=== PATIENT | male | born 1965 | race Caucasian/White ===

== ENCOUNTER 2020-06-22 10:13 | Outpatient (REF) | payer OTHER, SELFPAY ==
--- NOTE | ~2020-06-22 | XR_ITS ---
EXAMINATION: XR SHOULDER, LEFT CLINICAL INFORMATION: Pain COMPARISON: None TECHNIQUE: AP external rotation, Grashey, scapular Y, and axillary views of the left shoulder. FINDINGS: The bones and soft tissues are normal. No fracture. Glenohumeral and acromioclavicular alignment is anatomic with normal joint space. No abnormal soft tissue calcifications. XR/XR shoulder LT min 2V IMPRESSION: Normal left shoulder.
== END 2020-06-22 10:14 | disposition home or self-care (01) ==
LOC: HO.HMGCX 10:13
PROVIDERS: PCP Nurse Practitioner Family; Visit Provider Nurse Practitioner Family
DX: M25.512 Pain in left shoulder (principal)
CPT/HCPCS: 73030

== ENCOUNTER 2020-09-12 07:00 | Outpatient (RCR) | payer OTHER, SELFPAY ==
--- NOTE | 2020-06-29 13:31 | MHC.PT.EP ---
[facility] [place] Office [place] Office [place] Office [address] [phone] F: [phone] F: [phone] F: [phone] F: [phone] Physical Therapy Plan of Care Date of Evaluation: 06/29/20 Date of Surgery: n/a Diagnosis: L shoulder pain Assessment: Patient is a 55 year old L handed male who presents with s/s consistent with L shoulder pain. He works with daily job demands including janitorial work. He would also love to be back to playing softball unrestricted this summer. Patient past medical history is non-contributory. Current impairments include pain, ROM, posture, strength, safety, independence, activity tolerance and functional mobility. Functional limitations include decreased ability to reach overhead, lift, throw, swing, and perform weight bearing activities.. Patient is motivated with good rehab potential. Skilled PT will address impairments and functional limitations in order to achieve goals. Frequency and Duration: The patient will be seen 2x/week for 5 weeks Short Term Goals: I with HEP - 2 weeks Full pain free AROM - 3 weeks (-) impingement sign - 3 weeks Stick Inserter Goals: Strength 4/5 grossly - 5 weeks SPADI 50/130 or better - 5 weeks Able to resume softball - 5 weeks Treatment Plan: Modalities to reduce pain, spasms and effusion. Manual therapy to restore motion and function. Therapeutic exercise to improve strength and flexibility. Neuromuscular re-education for posture and balance. Therapeutic activities to return to functional activities of daily living. Electronically signed by: Reymundo Perea, PT Please sign and return to therapist. Thank you for your referral.
--- NOTE | 2020-09-12 10:56 | MHC.PT.DC ---
[facility] [place] Office [place] Office [place] Office [address] [phone] F: [phone] F: [phone] F: [phone] F: [phone] Physical Therapy Discharge Report Diagnosis: L shoulder pain Date of Surgery: n/a Date of Evaluation: 06/29/20 Date of Discharge: 09/12/20 Treatments to Date: 15 Cancellations to Date: 0 No Shows to Date: 0 Discharge Status: Achieved Goals Improved Function Independent with HEP Discharge Summary: Pt SHWETA OVERALL PROGRESS W LEFT SH ROM, STRENGTH, AND PAIN. HE IS INDEP W SELF- SX MGMT TECHN AND IS MORE COMPLIANT W HEP - HE SHWETA SIGNIF IMPROVEMENTS IN HIS SPADI SCORE (AT EVAL 113/130 AND TODAY AT D/C 48/130). HE HAS A THOROUGH HEP ADDRESSING STRETCHING/ STRENGTHENING/ FUNCT MOB. Electronically signed by: Laura Song, PT Please sign and return to therapist. Thank you for your referral.
== END 2020-09-12 10:57 | disposition other institution (70) ==
LOC: HO.PTCHIC 07:00
PROVIDERS: PCP Nurse Practitioner Family; Visit Provider Nurse Practitioner Family
DX: M25.512 Pain in left shoulder (principal)
CPT/HCPCS: 97110; 97140; 97161

== ENCOUNTER 2020-12-20 06:02 | Outpatient (REF) | payer OTHER, SELFPAY ==
[2020-12-20 12:15] LABS: Alanine Aminotransferase 29 U/L (0-40); Albumin Level 4.2 g/dL (3.5-5.0); Alkaline Phosphatase 120 U/L (39-117); Anion Gap 12 (12-20); Aspartate Amino Transferase 18 U/L (5-37); Bilirubin Total 0.4 mg/dL (0.0-1.0); Blood Urea Nitrogen 11 mg/dL (9-16); Calcium 9.3 mg/dL (8.4-10.2); Carbon Dioxide 28 mmol/L (22-29); Chloride 106 mmol/L (96-108); Cholesterol 223 mg/dL; Estimated Glomerular Filt Rate > 60; Glucose Fasting 101 mg/dL (60-99); HDL Cholesterol 38 mg/dL; LDL Cholesterol Calculated 106 mg/dl; Potassium 4.2 mmol/L (3.3-5.1); Sodium 142 mmol/L (135-145); Total Protein 7.2 g/dL (6.5-8.0); Triglycerides 395 mg/dL
[2020-12-20 12:38] LABS: TSH reflex Free T4 2.77 uIU/mL (0.32-4.0)
== END 2020-12-20 06:03 | disposition home or self-care (01) ==
LOC: HO.HMGCLDS 06:02
PROVIDERS: PCP Nurse Practitioner Family; Visit Provider Nurse Practitioner Family
DX: Z00.00 Encounter for general adult medical examination without abnormal findings (principal); Z12.5 Encounter for screening for malignant neoplasm of prostate
CPT/HCPCS: 36415; 80053; 80061; 84153; 84443

== ENCOUNTER 2021-06-28 07:00 | Outpatient (RCR) | payer OTHER, SELFPAY ==
--- NOTE | 2021-01-16 09:08 | MHC.PT.EP ---
[facility] [place] Office [place] Office [place] Office [address] [phone] F: [phone] F: [phone] F: [phone] F: [phone] Physical Therapy Plan of Care Date of Evaluation: Date of Surgery: none Diagnosis: L shoulder pain Assessment: Patient is a 55 year old R handed male who presents with s/s consistent with L shoulder pain. He is very motivated to improve his ability to throw a softball for next s season. He also wants to improve his daily functional mobility. He works with daily job demands including janitorial duties. Patient past medical history includes is likely non-contributory. Current impairments include pain, ROM, posture, strength, activity tolerance and functional mobility. Functional limitations include decreased ability to reach, lift, carry, push, pull, throw, dress, sleep, and perform weight bearing activities.. Patient is motivated with good rehab potential. Skilled PT will address impairments and functional limitations in order to achieve goals. Frequency and Duration: The patient will be seen 1x/week for 8 weeks Short Term Goals: I with HEP - 2 weeks Full flexion and abduction - 4 weeks Initiate cuff strength with no setbacks - 4 weeks Senior Living Goals: Able to throw overhead with sustainable mechanics - 8 weeks Max pain with daily activities 2/10 or better - 8 weeks ER at 45/60/90 - 60 or better - 8 weeks Treatment Plan: Modalities to reduce pain, spasms and effusion. Manual therapy to restore motion and function. Therapeutic exercise to improve strength and flexibility. Neuromuscular re-education for posture and balance. Therapeutic activities to return to functional activities of daily living. Electronically signed by: Reymundo Perea, PT Please sign and return to therapist. Thank you for your referral.
--- NOTE | 2021-08-31 13:43 | MHC.PT.DC ---
[facility] [place] Office [place] Office [place] Office [address] [phone] F: [phone] F: [phone] F: [phone] F: [phone] Physical Therapy Discharge Report Diagnosis: L shoulder pain Date of Surgery: none Date of Evaluation: 01/16/21 Date of Discharge: 07/02/21 Treatments to Date: 18 Cancellations to Date: 0 No Shows to Date: Discharge Status: Independent with HEP Discharge Summary: Pt was unable to attend after his last appt but does have a sufficient HEP that we revised over the course of his bout of PT. He has improved on his impairments and functional limitations, though still lacking optimal ROM and strength. Able to toss softball x30 throws 20 feet. We will attempt to progress on this NV. No adverse reactions. Instructed in throwing 3-4x/week outside PT Electronically signed by: Reymundo Perea PT Please sign and return to therapist. Thank you for your referral.
== END 2021-08-31 13:44 | disposition home or self-care (01) ==
LOC: HO.PTCHIC 07:00
PROVIDERS: PCP Nurse Practitioner Family; Visit Provider Nurse Practitioner Family
DX: M25.512 Pain in left shoulder (principal)
CPT/HCPCS: 97110; 97140; 97161; 97530

== ENCOUNTER 2022-09-07 15:30 | Outpatient (REF) | payer OTHER, SELFPAY ==
[2022-09-07 16:18] LABS: MANUAL DIFF FLAG NO
[2022-09-07 17:45] LABS: Basophils Absolute Auto 0.1 X10*3/uL (0.0-0.2); Basophils Percent Auto 0.7 % (0-2); Eosinophils Absolute Auto 0.4 X10*3/uL (0.0-0.4); Eosinophils Percent Auto 4.8 % (0-4); Hematocrit 41.6 % (42.0-52.0); Hemoglobin 13.5 g/dl (14.0-18.0); Imm Gran Abs Auto 0.03 X10*3/uL (0.00-0.03); Imm Gran Pct Auto 0.4 % (0.0-0.4); Lymphocytes Absolute Auto 2.7 X10*3/uL (1.2-4.9); Lymphocytes Percent Auto 32.8 % (20-40); Mean Corpuscular HGB Conc 32.5 g/dl (31.0-36.0); Mean Corpuscular Hemoglobin 27.5 pg (27.0-33.0); Mean Corpuscular Volume 84.7 fL (80.0-98.0); Mean Platelet Volume 10.3 fL (9.4-12.4); Monocytes Absolute Auto 0.6 X10*3/uL (0.1-1.2); Monocytes Percent Auto 7.6 % (2-11); Neutrophils Absolute Auto 4.5 x10*3/uL (2.0-8.3); Neutrophils Percent Auto 53.7 % (45-73); Platelet Count 305 X10*3/uL (160-400); Red Blood Count 4.91 X10*6/uL (4.60-5.80); Red Cell Distribution Width 13.5 % (11.0-16.0); White Blood Count 8.3 X10*3/uL (4.8-10.8)
[2022-09-07 17:56] LABS: Appearance Urine Clear; Color Urine Yellow; Glucose Urine UA Negative (Negative); Leukocyte Esterase Urine Negative (Negative); Nitrite Urine Negative (Negative); PH 7.5 (5.0-9.0); Specific Gravity - Urine 1.015 (1.005-1.025); Urine Blood Negative (Negative); Urine Ketones Negative (Negative); Urine Protein Negative (Neg-Trace)
[2022-09-07 18:55] LABS: Ferritin 9 ng/mL (20-250)
[2022-09-07 19:11] LABS: Prostate Specific Antigen Scr 0.24 ng/mL (<0.05-4.0); Vitamin B12 294 pg/mL (200-900)
[2022-09-07 19:58] LABS: Alanine Aminotransferase 21 U/L (0-40); Alkaline Phosphatase 116 U/L (39-117); Anion Gap 12 (12-20); Aspartate Amino Transferase 15 U/L (5-37); Bilirubin Total 0.4 mg/dL (0.0-1.0); Blood Urea Nitrogen 14 mg/dL (9-16); Calcium 9.3 mg/dL (8.4-10.2); Carbon Dioxide 25 mmol/L (22-29); Chloride 107 mmol/L (96-108); Cholesterol 197 mg/dL; Estimated Glomerular Filt Rate > 60; Glucose Fasting 85 mg/dL (60-99); HDL Cholesterol 33 mg/dL; LDL Cholesterol Calculated 88 mg/dl; Potassium 4.2 mmol/L (3.3-5.1); Sodium 140 mmol/L (135-145); Total Protein 7.4 g/dL (6.5-8.0); Triglycerides 382 mg/dL
[2022-09-07 20:06] LABS: TSH reflex Free T4 1.54 uIU/mL (0.32-4.0)
== END 2022-09-07 15:31 | disposition home or self-care (01) ==
LOC: HO.LAB 15:30
PROVIDERS: PCP Nurse Practitioner Family; Visit Provider Internal Medicine
DX: Z00.00 Encounter for general adult medical examination without abnormal findings (principal); Z12.5 Encounter for screening for malignant neoplasm of prostate; K62.5 Hemorrhage of anus and rectum; D51.0 Vitamin B12 deficiency anemia due to intrinsic factor deficiency; Z80.0 Family history of malignant neoplasm of digestive organs; Z86.010 Personal history of colon polyps
CPT/HCPCS: 36415; 80053; 80061; 81003; 82607; 82728; 82746; 84153; 84443; 85025; 85027

== ENCOUNTER 2022-11-22 09:50 | Day surgery (SDC) | payer OTHER, SELFPAY ==
[2022-11-20 12:14] VITALS: BMI 37.5
--- NOTE | 2022-11-21 09:29 | P.CONAN_ITS ---
Documented by User: Mia Jones NP 11/21/22 09:30 HPI - Anesthesia Eval Consult details Narrative: 57yo M for Upper Endoscopy and Colonoscopy [facility] Active Problems Active Problems: All Active Problems (Updated 11/20/22 @ 12:10 by Malaika Simons, FE) Left shoulder pain (Acute) Physical exam (Acute) Screening PSA (prostate specific antigen) (Acute) Dyslipidemia (Acute) Erectile dysfunction (Acute) Screening for colon cancer (Acute) Bright red rectal bleeding (Acute) Family history of colon cancer (Acute) Personal history of colonic polyps (Acute) Iron deficiency anemia (Acute) Low vitamin B12 level (Acute) Sleep apnea (Acute) Past Medical History Medical History Hematochezia Pernicious anemia Family history of diabetes mellitus Sleep apnea Low vitamin B12 level Family History Family History Father No problems noted. Mother Hypertension Daughter Colon cancer Surgical History Surgical History Hx of umbilical hernia repair History of esophagogastroduodenoscopy (EGD) Hx of colonoscopy H/O inguinal hernia repair Social History Social History Housing: Apartment Alcohol intake: never Patient Tobacco Use Status: Former Tobacco user Years Smoked: 22yrs e-Cigarette/Vaping Use: Never Used Use of substances other than those prescribed or required for medical reasons: No Are you DNR?: No Advance Directives: No Advance Directives Information Provided: Yes Recently lost weight without trying: No service: No Current occupational status: employed Cognitive needs: No Hearing needs: No Vision needs: No Meds Allergies Allergy/AdvReac Type Severity Reaction Status Date / Time carrot [Carrot] Allergy Severe ITCHING/SWELLING Verified 11/20/22 12:03 (IN RAW FORM) Home Medications Medication Instructions Recorded Confirmed Last Taken Type acetaminophen 650 mg 650 mg PO Q8H 12/24/19 11/20/22 Unknown History tablet,extended release (Arthritis Pain Reliever) dorzolamide 22.3 mg-timolol 6.8 1 drp ophthalmic (eye) BID 09/07/22 Unknown History mg/mL eye drops netarsudil 0.02 %-latanoprost drp ophthalmic (eye) 09/07/22 Unknown History 0.005 % eye drops (Rocklatan) Exam Exam Date and Time: November 21, [id number] Height,Weight and Vital Signs: Height 5 ft 9 in Weight 115.212 kg Pertinent Lab Results Pertinent Lab Results: Laboratory Tests 09/07/22 09/07/22 16:17 16:17 WBC 8.3 Hgb 13.5 L Hct 41.6 L Plt Count 305 Sodium 140 Potassium 4.2 Chloride 107 Carbon Dioxide 25 BUN 14 Creatinine 1.09 Assessment and Plan Assessment Anesthesia Assessment: Chart Reviewed Documented by User: tC Posada MD 11/22/22 10:36 PMFSH Past Medical History Medical History Hematochezia Pernicious anemia Family history of diabetes mellitus Sleep apnea Low vitamin B12 level Family History Family History Father No problems noted. Mother Hypertension Daughter Colon cancer Surgical History Surgical History Hx of umbilical hernia repair History of esophagogastroduodenoscopy (EGD) Hx of colonoscopy H/O inguinal hernia repair History of Problems with Anesthesia: No Social History Social History Housing: Apartment Alcohol intake: never Patient Tobacco Use Status: Former Tobacco user Years Smoked: 22yrs e-Cigarette/Vaping Use: Never Used Use of substances other than those prescribed or required for medical reasons: No Are you DNR?: No Advance Directives: No Advance Directives Information Provided: Yes Recently lost weight without trying: No service: No Current occupational status: employed Cognitive needs: No Hearing needs: No Vision needs: No Meds Allergies Allergy/AdvReac Type Severity Reaction Status Date / Time carrot [Carrot] Allergy Severe ITCHING/SWELLING Verified 11/20/22 12:03 (IN RAW FORM) Home Medications Medication Instructions Recorded Confirmed Last Taken Type acetaminophen 650 mg 650 mg PO Q8H 12/24/19 11/20/22 Unknown History tablet,extended release (Arthritis Pain Reliever) dorzolamide 22.3 mg-timolol 6.8 1 drp ophthalmic (eye) BID 09/07/22 Unknown History mg/mL eye drops netarsudil 0.02 %-latanoprost drp ophthalmic (eye) 09/07/22 Unknown History 0.005 % eye drops (Rocklatan) Exam Airway Mallampati Class: II (edentulous) TM Dist: >3cm Neck ROM: Full Loose/Missing/Broken Teeth: Yes, Upper and Lower Heart: RRR Lungs: CTA Assessment and Plan Assessment Anesthesia Assessment: Anesthesia Plan Discussed Final Anesthetic Review History of Problems with Anesthesia: No NPO: Yes ASA Class: II Final Preanesthetic Review: Meds/Allgs Chart Reviewed, Consent Obtained/Reviewed and Anes Risks/Benef Reviewed Patient Risk: Low Procedure Risk: Intermediate Anesthetic Plan Anesthetic Plan: MAC: Disposition: Standard PACU
[2022-11-22 10:01] VITALS: BP 147/91; PULSE 67; RESP 18; TEMP 36.1; O2SAT 94; BMI 36.5
[2022-11-22 10:14] VITALS: BMI 36.5
--- NOTE | 2022-11-22 10:46 | MHC.SHP ---
Pre-Procedural Eval Section A Date of Service: 11/22/22 Section B Chief Complaint: Anemia, F hx of CRC Details of Present Illness: Medical History Family history of diabetes mellitus Hematochezia Low vitamin B12 level Pernicious anemia Sleep apnea Surgical History H/O inguinal hernia repair Hx of colonoscopy Present Medications: see Short Stay Collaborative assessment Allergies: Allergies Allergy/AdvReac Type Severity Reaction Status Date / Time carrot [Carrot] Allergy Severe ITCHING/SWELLING Verified 11/20/22 12:03 (IN RAW FORM) Plan Diagnosis/Plan: Unchanged I have reviewed the history and physical and performed a pertinent physical examination on my patient. No changes have occurred unless specified. Pt here for EGD and colo to evaluate iron deficiency anemia and rectal bleeding. Time Spent With Patient Time: Total time managing care of this patient today ____ minutes.
--- NOTE | 2022-11-22 10:48 | P.OP_ITS ---
Operative Note Operative Note Date of Service: 11/22/22 Narrative: Procedure:?Esophagogastroduodenoscopy and colonoscopy Endoscopist:?Heydi Melissa MD Indication:?Anemia, fam hx of CRC Anesthesia Provider:?Dr Ct Posada Anesthesia Type:?MAC Instrument:?Olympus GIF-H190, PCF-H190L EGD Procedure:?? The procedure, indications, preparation and potential complications were reviewed with the patient, who indicated understanding and gave written informed consent to proceed. A physical exam was performed. The endoscope was introduced through the mouth, and advanced to the second part of duodenum. The mucosa was carefully examined on slow withdrawal of the endoscope. There were no immediate complications. Patient tolerated the procedure well. EGD Findings:? * Esophagus:? Normal mucosa noted in the entire esophagus. The Z-line is at 40 cm. * Stomach:? Normal gastric mucosa. Retroflexion performed in the fundus. * Duodenum:? Normal duodenal mucosa to the extent visualised. Cold forceps biopsies were taken to rule out celiac sprue. Colonoscopy Procedure:? The patient was then turned for the colonoscopy. A digital rectal exam was performed which was normal.? A distal attachment cap was affixed to the tip of the scope and the colonoscope was then inserted through the anus and advanced through the colon to the cecum at 75 cm and terminal ileum. Appendiceal orifice and ileocecal valve were identified. Mucosa was carefully examined under high definition white light as the instrument was slowly withdrawn in a retrograde panoramic fashion. Retroflexion was performed in rectum. The procedure was not difficult. There were no immediate obvious complications. The quality of the prep was BBPS: 3+2+3 = adequate Withdrawal time: 9 minutes Limitations: No limitation. Findings: Mucosa: Normal mucosa to cecum and terminal ileum. Protruding lesions: * Medium internal hemorrhoids without stigmata of recent bleeding. Impression: 1. Normal esophagus 2. Normal gastric mucosa 3. Normal duodenum (biopsy) 4. Normal colon mucosa 5. Internal hemorrhoids Recommendations:?? * Await pathology results. * Check CBC and celiac serology. * Will replete PADILLA with iron infusions and recheck iron indices in 2 months. * If continues to decline, low threshold to pursue small bowel evaluation for iron deficiency anemia. * Repeat colonoscopy for asymptomatic colon cancer screening in 5 years due to fam history.
[2022-11-22 11:28] VITALS: BP 101/56; PULSE 74; RESP 15; TEMP 36.4; O2SAT 96
[2022-11-22 11:43] VITALS: BP 123/77; PULSE 73; RESP 20; TEMP 36.6; O2SAT 96
[2022-11-22 12:09] LABS: Hematocrit 40.5 % (42.0-52.0); Hemoglobin 13.6 g/dl (14.0-18.0); Mean Corpuscular HGB Conc 33.6 g/dl (31.0-36.0); Mean Corpuscular Hemoglobin 29.3 pg (27.0-33.0); Mean Corpuscular Volume 87.3 fL (80.0-98.0); Mean Platelet Volume 9.7 fL (9.4-12.4); Platelet Count 241 X10*3/uL (160-400); Red Blood Count 4.64 X10*6/uL (4.60-5.80); Red Cell Distribution Width 14.2 % (11.0-16.0); White Blood Count 6.5 X10*3/uL (4.8-10.8)
[2022-11-22 12:47] LABS: Ferritin 46 ng/mL (20-250)
[2022-11-26 10:02] LABS: Immunoglobulin A 252 mg/dL (47-310)
[2022-11-26 19:14] LABS: Transglutaminase IgA <1.0 U/mL
== END 2022-11-22 13:12 | disposition home or self-care (01) ==
PROVIDERS: PCP Nurse Practitioner Family; Visit Provider Internal Medicine
PROC: (CPT 45378; principal; 2022-11-22 12:00)
DX: Z12.11 Encounter for screening for malignant neoplasm of colon (principal); K64.8 Other hemorrhoids; Z86.010 Personal history of colon polyps; Z80.0 Family history of malignant neoplasm of digestive organs; D50.9 Iron deficiency anemia, unspecified; K62.5 Hemorrhage of anus and rectum; E78.5 Hyperlipidemia, unspecified; G47.30 Sleep apnea, unspecified; Z99.89 Dependence on other enabling machines and devices; Z87.891 Personal history of nicotine dependence; Z79.899 Other long term (current) drug therapy
CPT/HCPCS: 45378; 43239; 36415; 82728; 82784; 85027; 86364; 88305

== ENCOUNTER → 2022-11-22 09:50 | Outpatient (BNV) | payer OTHER, SELFPAY | PROVIDERS: PCP Nurse Practitioner Family; Visit Provider Internal Medicine | DX: D64.9 Anemia, unspecified (principal); Z80.0 Family history of malignant neoplasm of digestive organs; K64.8 Other hemorrhoids | CPT/HCPCS: 43239; 45378 ==

== ENCOUNTER 2022-12-12 15:36 | Outpatient (AMB) | payer OTHER, SELFPAY ==
--- NOTE | 2022-12-12 15:44 | A.OFFVIS_ITS ---
Intake Vital Signs 12/12/22 15:46 Height 5 ft 9 in Weight 242 lb 8.136 oz BMI 35.8 BP 117/75 Blood Pressure Location Lt brachial Position Sitting Pulse 63 Intake Visit Reasons: S/p egd/colon Intake Note: Wilder presents in the office as a follow up egd and colon CC: Patient would like to know if you are going to refill the iron or you want him to stop when he is all done? HE only bled once and he said it was right after the procedure. His previous bleeding has stopped completely. Allergies carrot [Carrot] Allergy (Severe, Verified 12/12/22 15:46) ITCHING/SWELLING (IN RAW FORM) HPI HPI Comments History of Present Illness Details This is a 57 year old male presenting to the office for follow up. 09/07/22: Patient is at high risk of colon cancer due to positive family history of colon cancer in daughter who then at age of 24. Patient also has personal hx of polyps. Last colo was in 2019 (Dr Barreto) and pt had x2 tubular adenoma including a 10mm one. Patient also reports intermittent rectal bleeding after BM, especially on wiping. Does not have any other gastrointestinal symptoms to include abdominal pain, nausea, vomiting, diarrhea, or weight loss. Labs not available for ? anemia. 11/22/22: 1. Normal esophagus 2. Normal gastric mucosa 3. Normal duodenum (biopsy) 4. Normal colon mucosa 5. Internal hemorrhoids Path: Duodenum, biopsy: Duodenal mucosa with predominantly preserved villi and no sp ecific change. 12/12/22: EGD/colo results reviewed. Labs reviewed. Improvement of ferritin with PO iron. Anemia most likely from hemorrhoidal bleeding. Pt reports resolution of bleeding for a good 2 weeks after the colo but has now recurred since early this week. Stools are hard but does not report straining. [facility], [facility] Medical History Hematochezia Pernicious anemia Family history of diabetes mellitus Sleep apnea Low vitamin B12 level Surgical History Hx of umbilical hernia repair History of esophagogastroduodenoscopy (EGD) Hx of colonoscopy H/O inguinal hernia repair Family History Father No problems noted. Mother Hypertension Daughter Colon cancer Social History Housing: Apartment Alcohol intake: never Patient Tobacco Use Status: Former Tobacco user Years Smoked: 22yrs e-Cigarette/Vaping Use: Never Used service: No Current occupational status: employed Cognitive needs: No Hearing needs: No Vision needs: No Review of Systems Const All systems reviewed & are unremarkable except as noted in HPI and below Physical Exam Vital Signs: Last Vital Signs Pulse 63 12/12/22 15:46 BP 117/75 12/12/22 15:46 BMI result Body Mass Index 35.8 Gen appear: NAD HEENT: nonicteric, no cervical lymphadenopathy Chest: CTA CVS: Regular S1/S2 Abd: soft, nontender, nondistended, bowel sounds + Ext: no peripheral edema Neuro: A/Ox3, noted to move all extremities spontaneously Psych: interacting appropriately Assessment & Plan Assessment & Plan (1) Bright red rectal bleeding: Code(s): K62.5 - Hemorrhage of anus and rectum (2) Family history of colon cancer: Code(s): Z80.0 - Family history of malignant neoplasm of digestive organs (3) Iron deficiency anemia: Code(s): D50.9 - Iron deficiency anemia, unspecified Plan 1. Anemia and rectal bleeding likely from hemorrhoidal bleeding. Recommend fiber supplementation. Avoid constipation Sitz baths Topical hydrocort cream 10-14 days at bedtime Pt to call us if sx cont despite the measures above leading to clinically significant anemia, will refer to surgery. 2. So far, ferritin has responded to PO iron. Will recheck CBC and iron indices in one month and stop iron supplements if adequately repleted. Reminder set for labs. 3. Repeat colo for CRC screening in 5 years due to strong family history. Reminder set for colo. Follow up PRN. Orders: Orders Ferritin 01/07/23 D50.9 - Iron deficiency anemia, unspecified Complete Blood Count no Diff 01/07/23 D50.9 - Iron deficiency anemia, unspecified IRON PROFILE 01/07/23 D50.9 - Iron deficiency anemia, unspecified Vitamin B12 and Folate 01/07/23 D50.9 - Iron deficiency anemia, unspecified Medications: New psyllium husk 12 grams PO DAILY 90 days 100 ea 1RF hydrocortisone 1% 1 appl CO BEDTIME 10 days 28.4 grams 0RF Refilled ferrous sulfate Take with half a cup of orange juice 325 mg PO DAILY 30 tabs 0RF D50.9 - Iron deficiency anemia, unspecified Coding Level of Care Code Est Pt Level 4 (71003) Diagnoses Bright red rectal bleeding K62.5 Family history of colon cancer Z80.0 Iron deficiency anemia D50.9
[2022-12-12 15:46] VITALS: BP 117/75; PULSE 63; BMI 35.8
== END 2022-12-12 16:36 | disposition home or self-care (01) ==
PROVIDERS: PCP Nurse Practitioner Family; Visit Provider Internal Medicine
DX: K62.5 Hemorrhage of anus and rectum (principal); Z80.0 Family history of malignant neoplasm of digestive organs; D50.9 Iron deficiency anemia, unspecified
CPT/HCPCS: 99214

== ENCOUNTER → 2022-12-12 15:36 | Outpatient (BNVA) | payer OTHER, SELFPAY | PROVIDERS: PCP Nurse Practitioner Family; Visit Provider Internal Medicine ==

== ENCOUNTER 2023-04-06 09:46 | Outpatient (REF) | payer OTHER, SELFPAY ==
[2023-04-06 10:39] LABS: Hematocrit 44.3 % (42.0-52.0); Hemoglobin 14.9 g/dl (14.0-18.0); Mean Corpuscular HGB Conc 33.6 g/dl (31.0-36.0); Mean Corpuscular Volume 89.3 fL (80.0-98.0); Platelet Count 267 X10*3/uL (160-400); Red Blood Count 4.96 X10*6/uL (4.60-5.80); Red Cell Distribution Width 13.1 % (11.0-16.0); White Blood Count 6.9 X10*3/uL (4.8-10.8)
[2023-04-06 11:27] LABS: Iron 88 mcg/dL (45-160); Percent Iron Saturation 27 % (15-50); Total Iron Binding Capacity 330 mcg/dL (228-428); Unsaturated Iron Binding 242 ug/dL
[2023-04-06 11:41] LABS: Ferritin 44 ng/mL (20-250)
[2023-04-06 11:50] LABS: Folate 7.8 ng/mL (> or = 4.0); Vitamin B12 203 pg/mL (200-900)
== END 2023-04-06 09:47 | disposition home or self-care (01) ==
LOC: HO.LAB 09:46
PROVIDERS: PCP Nurse Practitioner Family; Visit Provider Internal Medicine
DX: D50.9 Iron deficiency anemia, unspecified (principal)
CPT/HCPCS: 36415; 82607; 82728; 82746; 83540; 85027

== ENCOUNTER 2023-07-18 12:31 | Outpatient (AMB) | payer OTHER, SELFPAY ==
--- NOTE | 2023-07-18 12:33 | MHC.PC.OV ---
Vital Signs 07/18/23 12:36 Height 5 ft 9 in Weight 250 lb BMI 36.9 BP 118/68 Blood Pressure Location Rt brachial Position Sitting Pulse 84 Pulse Source Pulse Oximeter Pulse Oximetry (%) 96 Oxygen Delivery Method Room Air Intake Visit Reasons: PE Intake Note: Patient here for physical exam. Colon: 2021 due in 10yrs Allergies carrot [Carrot] Allergy (Severe, Verified 07/18/23 12:38) ITCHING/SWELLING (IN RAW FORM) Medication List - Last Reconciled 07/18/23 by CYNTHIA Stauffer acetaminophen ER (Arthritis Pain Reliever) 650 mg PO Q8H atorvastatin 20 mg PO BEDTIME B complex-vitamin C-folic acid 400 mcg ER 1 tab PO DAILY 90 days cholecalciferol (vitamin D3) 50 mcg PO QPM 90 days CPAP (CPAP Machine/Device) use every night diclofenac sodium 75 mg PO BID PRN dorzolamide-timolol 22.3-6.8 mg/mL 1 drp ophthalmic (eye) BID ferrous sulfate 325 mg PO DAILY hydrocortisone 1% 1 appl [place] BEDTIME multivitamin 1 tab PO DAILY nebulizers daily use netarsudil-latanoprost 0.02-0.005 % (Rocklatan) drps ophthalmic (eye) omega-3 acid ethyl esters 1 cap PO BID psyllium husk 12 grams PO DAILY 90 days sildenafil 100 mg PO DAILY PRN Tobacco use date assessed: 07/18/23 Dental Screening Dental Screen Date: 07/18/23 Did you have a dental visit in the last 12 months?: No Did you have a dental problem in the last 6 months where you did not have access to dental care?: No Was dental information given to patient?: Patient has dentist HPI PE HPI Details Pt is here for a PE. Will order labs. Colon screen is up to date. Due for PSA in the near future, will order. Denies dribbling with urination, weak stream, and frequent nocturia. Hx of pernicious anemia, will order labs. [facility] Medical History (Updated 07/18/23 @ 12:09 by CYNTHIA Stauffer) Hematochezia Pernicious anemia Family history of diabetes mellitus Sleep apnea Low vitamin B12 level Surgical History Hx of umbilical hernia repair History of esophagogastroduodenoscopy (EGD) Hx of colonoscopy H/O inguinal hernia repair Family History Father No problems noted. Mother Hypertension Daughter Colon cancer Social History Housing: Apartment Alcohol intake: never Patient Tobacco Use Status: Former Tobacco user Years Smoked: 22yrs e-Cigarette/Vaping Use: Never Used service: No Current occupational status: employed Cognitive needs: No Hearing needs: No Vision needs: No Questionnaire PHQ-9 Over the last 2 weeks, how often have you been bothered by any of the following problems? 19956 - PHQ-9 Billing: Patient declined-do not bill Source: Developed by Drs. Hossein Gallardo, Adela Agustin, Bony Velasquez and colleagues, with an educational barak from [employer]. Thrive Questionnaire Date Thrive assessed: 07/18/23 What is your living situation today?: I choose not to answer this question Within the past 12 months, did the food you bought not last and you didn't have the money to get more?: I choose not to answer this question Within the past 12 months, did you worry whether your food would run out before you got money to buy more?: I choose not to answer this question Do you have trouble paying for medicines?: I choose not to answer this question Do you have trouble getting transportation to medical appointments?: I choose not to answer this question Do you have trouble paying your heating and electricity bill?: I choose not to answer this question Do you have trouble taking care of your child, family member or friend?: I choose not to answer this question Do you have trouble with day-to-day activities such as bathing, preparing meals, shopping, managing finances, etc.?: I choose not to answer this question Are you currently unemployed and looking for a job?: I choose not to answer this question Are you interested in more education?: I choose not to answer this question Currently or been in a relationship where the following occur: I choose not to answer this question THRIVE Score: 0 AUDIT C Alcohol Use Questionnaire (AUDIT-C) 1. How often do you have a drink containing alcohol?: Never 3. How often do you have six or more drinks on one occasion?: Never Total Score: 0 Score Reviewed/Action Taken: No LUCINDA-7 AMB Questionnaire LUCINDA-7 Date LUCINDA - 7 assessed: 07/18/23 Source: Developed by Drs. Hossein Gallardo, Adela Agustin, Bony Velasquez and colleagues, with an educational barak from [employer]. LUCINDA-7 Assessment Billing LUCINDA-7 Assessment Tool: pt declined-do not bill Review of Systems Const Denies chills and Denies fever(s) Eyes Denies blurry vision ENT Denies vertigo, Denies dizziness and Denies sore throat Card Denies chest pain at rest, Denies chest pain with activity, Denies diaphoresis, Denies dyspnea and Denies dyspnea on exertion Resp Denies cough, Denies dyspnea, Denies dyspnea on exertion and Denies wheezing GI Denies abdominal pain, Denies melena, Denies hematochezia, Denies constipation, Denies diarrhea and Denies loose stools Denies hematuria Musc Denies numbness and Denies tingling Skin/Breast Denies lesions Neuro Denies vertigo, Denies dizziness, Denies numbness and Denies tingling Psych Denies anxiety, Denies depression, Denies homicidal ideation, Denies suicidal ideation and Denies other (substance abuse) Aller/Immun Denies wheezing Physical exam (Primary Care) Vital Signs: Last Vital Signs Pulse 84 07/18/23 12:36 BP 118/68 07/18/23 12:36 Pulse Ox 96 07/18/23 12:36 Oxygen Delivery Method Room Air 07/18/23 12:36 BMI result Body Mass Index 36.9 Tobacco/Smoking Status: Tobacco use Status Tobacco use date assessed 07/18/23 07/18/23 12:41 Patient Tobacco Use Status Former Tobacco user 07/18/23 12:35 e-Cigarette/Vaping Use Never Used 07/18/23 12:35 Thrive Assessment: Date of Thrive Assessment Date Thrive assessed 07/10/22 07/18/23 12:35 Currently or been in a relationship where the following occur: I choose not to answer this question Const General: cooperative Nutritional Appearance: obese Orientation/consciousness: patient oriented x3 HENMT Head: Yes normal to inspection, Yes normocephalic and Yes atraumatic Ears: TM's normal bilaterally Eyes General: appearance normal, both eyes and all related structures Alignment and Position: alignment normal and position normal Neck Neck: Yes normal visual inspection and Yes no lymphadenopathy Thyroid: Thyroid normal Resp Effort & Inspection: normal respiratory effort Auscultation: clear to auscultation bilaterally Cardio Rate: regular rate Rhythm: regular rhythm Heart sounds: S1 normal heart sound present, S2 normal heart sound present and no murmurs GI Palpation (GI): Soft to palpation and nontender Auscultation: normal bowel sounds Male General Exam: Yes normal external exam Penis: normal penis Scrotum: scrotum normal, testes descended bilaterally and no inguinal hernias Testes: no testicular mass Skin Rashes: no rashes Neuro General: patient oriented x3, moves all extremities, no focal motor deficits and deep tendon reflexes 2+ bilaterally Romberg Test: Negative Psych Appearance: grossly normal Mental Status: mental status grossly normal Speech and movement: Normal speech and movement present Affect: normal affect Attitude: cooperative Thought process: Normal thought process present Thought content: Normal thought content present Insight: Good insight present (Psych) Judgement: Good judgement present (Psych) Assessment and Plan Assessment & Plan (1) Physical exam: Code(s): Z00.00 - Encounter for general adult medical examination without abnormal findings Plan: Labs ordered (2) Pernicious anemia: Code(s): D51.0 - Vitamin B12 deficiency anemia due to intrinsic factor deficiency Plan: Labs ordered Plan The patient agreed to the use of a medical office technology instructor for this encounter. Scribed for CYNTHIA Carvajal by Suzie Esposito medical office technology instructor, on 07/18/2023 at 12:45 EST. Orders: Orders TSH reflex Free T4 Today Lipid Panel Today Z00.00 - Encounter for general adult medical examination without abnormal findings Vitamin B12 and Folate Today D51.0 - Vitamin B12 deficiency anemia due to intrinsic factor deficiency Complete Blood Count Auto Diff Today Z00.00 - Encounter for general adult medical examination without abnormal findings Comprehensive [place]. Panel Fast Today Z00.00 - Encounter for general adult medical examination without abnormal findings UA CC w/rflx Micro + Cult Today Z00.00 - Encounter for general adult medical examination without abnormal findings Prostate Specific Antigen Scr Today Vitamin D 25-OH Total Today Z00.00 - Encounter for general adult medical examination without abnormal findings Coding Level of Care Code Est Pt Prev Care 40-64y(22316) Diagnoses Physical exam Z00.00 Pernicious anemia D51.0
[2023-07-18 12:36] VITALS: BP 118/68; PULSE 84; O2SAT 96; BMI 36.9
== END 2023-07-18 12:54 | disposition home or self-care (01) ==
PROVIDERS: PCP Nurse Practitioner Family; Visit Provider Nurse Practitioner Family
DX: Z00.00 Encounter for general adult medical examination without abnormal findings (principal); D51.0 Vitamin B12 deficiency anemia due to intrinsic factor deficiency
CPT/HCPCS: 99396

== ENCOUNTER 2023-12-30 16:03 | Outpatient (AMB) | payer BC, SELFPAY ==
--- NOTE | 2023-12-30 16:06 | AM.OFFWIN_ITS ---
Intake Vital Signs 12/30/23 16:07 Height 5 ft 9 in Weight 256 lb BMI 37.8 BP 120/72 Blood Pressure Location Lt brachial Position Sitting Pulse 86 Pulse Source Pulse Oximeter Pulse Oximetry (%) 98 Oxygen Delivery Method Room Air Intake Visit Reasons: EP redness on LT eye Intake Note: Patient here for left eye redness that started last saturday Patient Tobacco Use Status: Former Tobacco user Allergies carrot [Carrot] Allergy (Severe, Verified 07/18/23 12:38) ITCHING/SWELLING (IN RAW FORM) Do you need a note to return to daycare/school/sports/work: No HPI HPI Comments History of Present Illness Details Patient is a 58-year-old male complaining of left eye redness x5 days. He states every morning when he wakes up, his left eye is crusted shut and weeps throughout the day. He states when he is driving it strained and the vision is a little bit blurry. He states his eyes also bloodshot. He denies wearing contacts. He denies any issues in his right eye [facility] Medical History (Updated 12/30/23 @ 16:13 by Adalgisa Borjas PA-C) Hematochezia Pernicious anemia Family history of diabetes mellitus Sleep apnea Low vitamin B12 level Surgical History Hx of umbilical hernia repair History of esophagogastroduodenoscopy (EGD) Hx of colonoscopy H/O inguinal hernia repair Family History Father No problems noted. Mother Hypertension Daughter Colon cancer Social History Housing: Apartment Alcohol intake: never Patient Tobacco Use Status: Former Tobacco user Years Smoked: 22yrs e-Cigarette/Vaping Use: Never Used service: No Current occupational status: employed Cognitive needs: No Hearing needs: No Vision needs: No Review of Systems Const All systems reviewed & are unremarkable except as noted in HPI and below Physical Exam Const General: cooperative, healthy appearing, comfortable, no acute distress and well developed Orientation/consciousness: patient oriented x3 Limitations: no limitations HEENT Head: Yes normal to inspection Eyes Alignment and Position: alignment normal and position normal Eyelids: Yes eyelids normal Conjunctivae: conjunctival abnormal left conjunctival injection and discharge Pupils: Equal, round and reactive pupils present EOM: EOMs intact bilaterally Neck Neck: Yes normal visual inspection and Yes supple Neuro General: patient oriented x3 Cranial nerves: Yes Equal, round and reactive pupils present Assessment & Plan Assessment & Plan (1) Bacterial conjunctivitis: Code(s): H10.9 - Unspecified conjunctivitis Plan: Sent erythromycin ointment to patient's pharmacy, explained how to use the ointment. Recommended if he has any visual changes to follow up with his PCP or weight training instructor. Plan See above Medications: New erythromycin Apply to left eye 4 times a day while awake 0.5 inches ophthalmic (eye) QID 3.5 grams 0RF Coding Level of Care Code Est Pt Level 3 (16573) Diagnoses Bacterial conjunctivitis H10.9
[2023-12-30 16:07] VITALS: BP 120/72; PULSE 86; O2SAT 98; BMI 37.8
== END 2023-12-30 16:41 | disposition home or self-care (01) ==
PROVIDERS: PCP Nurse Practitioner Family; Visit Provider Physician Assistant
DX: H10.9 Unspecified conjunctivitis (principal)

== ENCOUNTER → 2023-12-30 16:03 | Outpatient (BNVA) | payer BC, SELFPAY | PROVIDERS: PCP Nurse Practitioner Family; Visit Provider Physician Assistant ==

== ENCOUNTER 2024-06-09 10:12 | Outpatient (REF) | payer OTHER, SELFPAY ==
[2024-06-09 13:47] LABS: Alanine Aminotransferase 16 U/L (0-40); Alkaline Phosphatase 123 U/L (39-117); Aspartate Amino Transferase 15 U/L (5-37); Bilirubin Direct 0.1 mg/dL (0.0-0.5); Bilirubin Total 0.3 mg/dL (0.0-1.0); Total Protein 6.9 g/dL (6.5-8.0)
== END 2024-06-09 10:13 | disposition home or self-care (01) ==
LOC: HO.10HDL 10:12
PROVIDERS: Visit Provider Podiatrist Foot Surgery
DX: B35.3 Tinea pedis (principal); L84 Corns and callosities; B35.1 Tinea unguium
CPT/HCPCS: 36415; 80076

== ENCOUNTER 2024-08-18 08:17 | Outpatient (AMB) | payer OTHER, SELFPAY ==
[2024-08-18 08:24] VITALS: BP 118/76; PULSE 61; RESP 14; TEMP 36.6; O2SAT 97; BMI 36.8
--- NOTE | 2024-08-18 08:24 | MHC.PC.OV ---
Vital Signs 08/18/24 08:24 Height 5 ft 9 in Weight 249 lb BMI 36.8 BP 118/76 Blood Pressure Location Rt brachial Position Sitting Respiration 14 Pulse 61 Pulse Source Pulse Oximeter Temp 97.9 F Temp Source Oral Pulse Oximetry (%) 97 Intake Visit Reasons: PE Director Of Compensation Required: No Accompanied by: Self / Same As Patient Allergies carrot [Carrot] Allergy (Severe, Verified 08/18/24 08:28) ITCHING/SWELLING (IN RAW FORM) Medication List - Last Reconciled 08/18/24 by NATALIE Stauffer-STACIA acetaminophen ER (Arthritis Pain Reliever) 650 mg PO Q8H atorvastatin 20 mg PO BEDTIME B complex-vitamin C-folic acid 400 mcg ER 1 tab PO DAILY 90 days cholecalciferol (vitamin D3) 50 mcg PO QPM 90 days CPAP (CPAP Machine/Device) use every night diclofenac sodium 75 mg PO BID PRN dorzolamide-timolol 22.3-6.8 mg/mL 1 drp ophthalmic (eye) BID erythromycin 0.5 inches ophthalmic (eye) QID ferrous sulfate 325 mg PO DAILY hydrocortisone 1% 1 appl [place] BEDTIME multivitamin 1 tab PO DAILY nebulizers daily use netarsudil-latanoprost 0.02-0.005 % (Rocklatan) drps ophthalmic (eye) omega-3 acid ethyl esters 1 cap PO BID psyllium husk 12 grams PO DAILY 90 days sildenafil 100 mg PO DAILY PRN Tobacco use date assessed: 08/18/24 Dental Screening Dental Screen Date: 08/18/24 Did you have a dental visit in the last 12 months?: Yes Did you have a dental problem in the last 6 months where you did not have access to dental care?: No Was dental information given to patient?: Patient has dentist HPI PE HPI Details History of Present Illness The patient is a 59-year-old male presenting for a wellness visit. He is in good spirits and denies any symptoms such as chest pain, shortness of breath, abdominal pain, blood in stool, or urinary issues. His colon cancer screening is up to date. Although the patient is obese, he otherwise expresses feeling well and without additional health concerns at this time. Health Maintenance - Colon cancer screening is up to date. - Plan to obtain all lab tests including prostate-specific antigen (PSA). Social History - Employed with a new job, which he is enjoying. - Denies any issues at this time. Review of Systems - Cardiovascular: Denies chest pain or shortness of breath. - Gastrointestinal: Denies abdominal pain, blood in stool, constipation, or diarrhea. - Genitourinary: Denies urinary issues. denies any si or hi Physical Exam General: Cooperative, healthy appearing, comfortable, no acute distress and well developed, obese Orientation: Patient oriented x3 Limitations: No limitations Head: Normal to inspection Ears: Hearing grossly normal bilaterally Nose: Normal external nose present Face and sinus: Normal facial exam Eyes: Appearance normal, both eyes and all related structures Neck: Normal visual inspection and Yes full ROM Respiratory: Normal respiratory effort and able to speak in complete sentences. Clear to auscultation bilaterally Cardiovascular: Regular rate and rhythm. Normal S1 and S2 GI: Normal to inspection. Soft to palpation and nontender Skin: No rashes or lesions noted Neuro: Patient oriented x3 Extremities: Normal to inspection Results Plan Given the wellness visit, I noted the patient's morbid obesity and ensured his colon cancer screening is current. I plan to conduct laboratory tests, including a PSA, to continue monitoring his health. He reports doing well, and I advised ongoing wellness care. Discussion Notes I discussed with the patient that despite his morbid obesity, he is currently in good spirits and feeling well. I emphasized the importance of maintaining regular check-ups and screenings, including obtaining comprehensive lab work and a PSA test. We talked about how his colon cancer screening is up to date, which is crucial for his health maintenance. I reiterated the value of monitoring his overall health and wellness, considering his risk factors. Patient Instructions - Follow through with all laboratory tests including PSA. - Continue regular wellness visits. - Maintain up-to-date screenings such as colon cancer screening. - Monitor for new symptoms and report any changes. [facility] Medical History Hematochezia Pernicious anemia Family history of diabetes mellitus Sleep apnea Low vitamin B12 level Surgical History Hx of umbilical hernia repair History of esophagogastroduodenoscopy (EGD) Hx of colonoscopy H/O inguinal hernia repair Family History Father No problems noted. Mother Hypertension Daughter Colon cancer Social History Housing: Apartment Alcohol intake: never Patient Tobacco Use Status: Former Tobacco user Years Smoked: 22yrs e-Cigarette/Vaping Use: Never Used service: No Current occupational status: employed Cognitive needs: No Hearing needs: No Vision needs: No Questionnaire PHQ-9 Over the last 2 weeks, how often have you been bothered by any of the following problems? 1. Little interest or pleasure in doing things: not at all 2. Feeling down, depressed, or hopeless: not at all 3. Trouble falling or staying asleep, or sleeping too much: not at all 4. Feeling tired or having little energy: not at all 5. Poor appetite or overeating: not at all 6. Feeling bad about yourself - or that you are a failure or have let yourself or your family down: not at all 7. Trouble concentrating on things, such as reading the newspaper or watching television: not at all 8. Moving or speaking so slowly that other people could have noticed. Or the opposite - being so fidgety or restless that you have been moving around a lot more than usual: not at all 9. Thoughts that you would be better off or of hurting yourself in some way: not at all Total score: 0 Depression Screening Interpretation: Negative Depression Screening Done: Yes 67549 - PHQ-9 Billing: Yes Source: Developed by Drs. Hossein Gallardo, Adela Agustin, Bony Velasquez and colleagues, with an educational barak from [employer]. Thrive Questionnaire Date Thrive assessed: 08/18/24 I am a: Patient What is your living situation today?: I have a steady place to live Within the past 12 months, did the food you bought not last and you didn't have the money to get more?: Often true Within the past 12 months, did you worry whether your food would run out before you got money to buy more?: I choose not to answer this question Do you have trouble paying for medicines?: No Do you have trouble getting transportation to medical appointments?: No Do you have trouble paying your heating and electricity bill?: No Do you have trouble taking care of your child, family member or friend?: No Do you have trouble with day-to-day activities such as bathing, preparing meals, shopping, managing finances, etc.?: No Are you currently unemployed and looking for a job?: No Are you interested in more education?: No Please select the resources that you would like help with: None Currently or been in a relationship where the following occur: No concerns reported THRIVE Score: 1 AUDIT C Alcohol Use Questionnaire (AUDIT-C) 1. How often do you have a drink containing alcohol?: Never 3. How often do you have six or more drinks on one occasion?: Never Total Score: 0 Score Reviewed/Action Taken: Yes LUCINDA-7 AMB Questionnaire LUCINDA-7 Date LUCINDA - 7 assessed: 08/18/24 Feeling nervous, anxious, or on edge: 0 = Not at all Not being able to stop or control worryin = Not at all Worrying too much about different things: 0 = Not at all Trouble relaxin = Not at all Being so restless that it is hard to sit still: 0 = Not at all Becoming easily annoyed or irritable: 0 = Not at all Feeling afraid as if something awful might happen: 0 = Not at all Total LUCINDA-7 score (0-4 normal; 5-9 mild; 10-14 moderate; 15-21 severe): 0 Source: Developed by Drs. Hossein Gallardo, Adela Agustin, Bony Velasquez and colleagues, with an educational barak from [employer]. LUCINDA-7 Assessment Billing LUCINDA-7 Assessment Tool: LUCINDA-7 Assessment 75054 Physical exam (Primary Care) Vital Signs: Last Vital Signs Temp 97.9 F 08/18/24 08:24 Pulse 61 08/18/24 08:24 Resp 14 08/18/24 08:24 BP 118/76 08/18/24 08:24 Pulse Ox 97 08/18/24 08:24 BMI result Body Mass Index 36.8 Tobacco/Smoking Status: Tobacco use Status Tobacco use date assessed 08/18/24 08/18/24 08:26 Patient Tobacco Use Status Former Tobacco user 08/18/24 08:26 e-Cigarette/Vaping Use Never Used 08/18/24 08:26 PHQ-9: PHQ-9 Score PHQ-9: Total score 0 08/18/24 08:26 Depression Screening Interpretation: Negative Thrive Assessment: Date of Thrive Assessment Date Thrive assessed 08/18/24 08/18/24 08:26 Currently or been in a relationship where the following occur: No concerns reported Coding Level of Care Code Est Pt Prev Care 40-64y(26843) Diagnoses Screening PSA (prostate specific antigen) Z12.5 Physical exam Z00.00 Additional Codes LUCINDA-7 Assessment Billing - LUCINDA-7 Assessment Tool: LUCINDA-7 Assessment 64080 ([id number]) PHQ-9 - 10333 - PHQ-9 Billing: Yes ([id number]) Assessment & Plan Assessment & Plan (1) Screening PSA (prostate specific antigen): Code(s): Z12.5 - Encounter for screening for malignant neoplasm of prostate Category: Medical (2) Physical exam: Code(s): Z00.00 - Encounter for general adult medical examination without abnormal findings Category: Medical Plan . Orders: Orders Comprehensive [place]. Panel Fast Today E53.8 - Deficiency of other specified B group vitamins, Z00.00 - Encounter for general adult medical examination without abnormal findings Vitamin B12 and Folate Today E53.8 - Deficiency of other specified B group vitamins, Z00.00 - Encounter for general adult medical examination without abnormal findings Vitamin D 25-OH Total Today E53.8 - Deficiency of other specified B group vitamins, Z00.00 - Encounter for general adult medical examination without abnormal findings Complete Blood Count Auto Diff Today E53.8 - Deficiency of other specified B group vitamins, Z00.00 - Encounter for general adult medical examination without abnormal findings TSH reflex Free T4 Today E53.8 - Deficiency of other specified B group vitamins, Z00.00 - Encounter for general adult medical examination without abnormal findings UA CC w/rflx Micro + Cult Today E53.8 - Deficiency of other specified B group vitamins, Z00.00 - Encounter for general adult medical examination without abnormal findings Lipid Panel Today E53.8 - Deficiency of other specified B group vitamins, Z00.00 - Encounter for general adult medical examination without abnormal findings Prostate Specific Antigen Scr Today Z12.5 - Encounter for screening for malignant neoplasm of prostate
== END 2024-08-18 08:37 | disposition home or self-care (01) ==
LOC: HO.HMCC 08:18
PROVIDERS: PCP Nurse Practitioner Family; Visit Provider Nurse Practitioner Family
DX: Z12.5 Encounter for screening for malignant neoplasm of prostate (principal); Z00.00 Encounter for general adult medical examination without abnormal findings

== ENCOUNTER → 2024-08-18 08:17 | Outpatient (BNVA) | payer OTHER, SELFPAY | PROVIDERS: PCP Nurse Practitioner Family; Visit Provider Nurse Practitioner Family | DX: Z00.00 Encounter for general adult medical examination without abnormal findings (principal); E66.9 Obesity, unspecified; E53.8 Deficiency of other specified B group vitamins; Z68.36 Body mass index [BMI] 36.0-36.9, adult | CPT/HCPCS: 96127 ==

== ENCOUNTER 2024-11-24 13:44 | Outpatient (AMB) | payer OTHER, SELFPAY ==
--- NOTE | 2024-11-24 13:52 | A.OFFVIS_ITS ---
Vital Signs 11/24/24 13:57 Height 5 ft 9 in Weight 237 lb BMI 35.0 Intake Visit Reasons: Lt foot callus Intake Note: Wilder is a 59 year old male who presents today as a new patient for an evaluation of his left foot callous. He mentions it is localized on the lateral aspect of his left foot.Patient reports the pain has been going for a little over 8 months and he has not tried any OTC medication for the pain. Allergies carrot (Carrot) Allergy (Severe, Verified 11/24/24 13:58) ITCHING/SWELLING (IN RAW FORM) Medication List - Last Reconciled 11/24/24 by Luis Ro DPM acetaminophen ER (Arthritis Pain Reliever) 650 mg PO Q8H atorvastatin 20 mg PO BEDTIME B complex-vitamin C-folic acid 400 mcg ER 1 tab PO DAILY 90 days cholecalciferol (vitamin D3) 50 mcg PO QPM 90 days CPAP (CPAP Machine/Device) use every night diclofenac sodium 75 mg PO BID PRN dorzolamide-timolol 22.3-6.8 mg/mL 1 drp ophthalmic (eye) BID erythromycin 0.5 inches ophthalmic (eye) QID ferrous sulfate 325 mg PO DAILY hydrocortisone 1% 1 appl WA BEDTIME multivitamin 1 tab PO DAILY nebulizers daily use netarsudil-latanoprost 0.02-0.005 % (Rocklatan) drps ophthalmic (eye) omega-3 acid ethyl esters 1 cap PO BID psyllium husk 12 grams PO DAILY 90 days sildenafil 100 mg PO DAILY PRN HPI HPI Lt foot callus: Details: The patient is a 59-year-old pre-diabetic male who presents with a left foot painful lesion that has been causing discomfort for several months. He describes the lesion as a corn that is located on the bottom of his left foot. He mentions the lesion causes pain when wearing shoes, even on wearing supportive shoes. The patient has not had any prior imaging of the foot and has not undergone previous treatments other than seeing another animal laboratory technician who shaved the lesion every visit. 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 The patient reports being prediabetic but is not currently on medication for this condition. ON LICENSE OF [facility] Medical History Hematochezia Pernicious anemia Family history of diabetes mellitus Sleep apnea Low vitamin B12 level Surgical History Hx of umbilical hernia repair History of esophagogastroduodenoscopy (EGD) Hx of colonoscopy H/O inguinal hernia repair Family History Father No problems noted. Mother Hypertension Daughter Colon cancer Social History Housing: Apartment Alcohol intake: never Patient Tobacco Use Status: Former Tobacco user Years Smoked: 22yrs e-Cigarette/Vaping Use: Never Used service: No Current occupational status: employed Cognitive needs: No Hearing needs: No Vision needs: No Review of Systems Const All systems reviewed & are unremarkable except as noted in HPI and below Physical Exam Vital Signs: BMI result Body Mass Index 35.0 Extrem Other: *Bilateral Lower Extremity Focused Exam Vascular: DP/PT 2/4, CFT<3s to digits, tg warm to cool, no pedal edema Derm: left foot submet5 lesion with deep core, no pinpoint bleeding; elongated thickened dystrophic nails x10 with subungual debris; xerosis to plantar aspect of both feet, no annular scaling. Neuro: Protective sensation grossly intact to bilateral lower extremities. MSK: High arch cavus foot type, semi rigid slightly reducible. Mild tenderness to direct pressure and radial squeeze to left foot sub-met-5 lesion, no pain on range of motion of the 5th toe. Office Procedures AMB Wart Destruction Podiatry 14546 - Wart Destruction (<15) (Left plantar foot) Procedure code (CPT) selection complete Office Meds cantharidin 0.7 % topical solution with applicator Performing Provider: Luis Ro DPM Performing Location: [facility] Administered by: Luis Ro DPM on 11/24/24 14:45 Dose Route Admin Location Dispensed Lot Number Expiration Date [facility] Lead Designer 1 appl topical 1 appl [id number] VERRICA PHA [employer] Assessment & Plan Assessment & Plan (1) Verruca plantaris: Code(s): B07.0 - Plantar wart Category: Medical Plan: * Differential diagnosis includes IPK versus verrucous lesion. Due to chronicity in nature, recommended treatment as verrucous lesion. * Cantharidin is applied to the left foot lesion and dressed with a Band-Aid. Instructed patient to apply antibiotic ointment and Band-Aid daily for the next 5 days. * Follow up in 2 weeks; may require a second application. (2) Cavus deformity of both feet: Code(s): Q66.71 - Congenital pes cavus, right foot; Q66.72 - Congenital pes cavus, left foot Category: Medical Plan: * Rx left foot x-ray three views to evaluate possible plantar-flexed 5th metatarsal versus exostosis. (3) Onychomycosis: Code(s): B35.1 - Tinea unguium Category: Medical Plan: * Debrided nails x 10 using sterile nail Nipper. * Rx ciclopirox. Orders: Orders AMB Wart Destruction Podiatry Today B07.0 - Plantar wart XR foot LT min 3V Today M79.672 - Pain in left foot, Q66.71 - Congenital pes cavus, right foot, Q66.72 - Congenital pes cavus, left foot Medications: New ciclopirox 0.77% Apply to nails daily. Remove build up at the end of the week. 1 appl topical DAILY 60 mL 3RF Fungal toe nails 4 weeks B35.1 - Tinea unguium Coding Level of Care Code New Pt Level 3 (08272) Diagnoses Verruca plantaris B07.0 Cavus deformity of both feet Q66.71; Q66.72 Onychomycosis B35.1 CPT Codes Destruction of Wart - CPT: 66825 - Wart Destruction (<15) ([id number]) Time Spent (min) 30
[2024-11-24 13:57] VITALS: BMI 35.0
--- OUTSIDE RECORDS SUMMARY | 2024-11-24 16:15 | XMS_ITS | Patient Health Record ---
Author Organization [facility] Address [address] [place] [address] Care Team Providers Care Aerobics Instructor Name Role Phone Jacob Meyers M.D. Primary Care Provider Robert Mueller Jr Unavailable Reason For Referral No Information Medications Medication SIG (Take, Route, Fr equency, Duration) Notes Start Date End Date Status Ibuprofen 600 MG 1 tablet Orally as needed Active Multivitamins Active Problems Problem Type SNOMED Code ICD Code Onset Dates Problem Status W/U Status Risk Notes Problem 49596943 Rectal bleeding (569.3) Active confirmed Problem 004559420 B12 deficiency (E53.8) Active confirmed Plan Of Treatment Future Test Test Name Order Date COLONOSCOPY 08/06/2014 UPPER GI ENDOSCOPY 03/09/2015 Insurance Providers Payer Name Payer Address Payer Phone Subscriber Number Group Number Insured Name Patient Relationship to Insured Coverage Start Date Coverage End Date [facility] [address] [place] [phone] [id number] LINDA WARNER Self - patient is the insured Medical (General) History Medical History History ICD Code paroxysmal supraventricular tachycardia elevated cholesterol Surgical History Surgery Date(Month/Year) hernia repair
== END 2024-11-24 14:30 | disposition home or self-care (01) ==
LOC: HO.HPODS 13:44
PROVIDERS: PCP Nurse Practitioner Family; Visit Provider Student in an Organized Health Care Education/Training Program
DX: B07.0 Plantar wart (principal); Q66.71 Congenital pes cavus, right foot; Q66.72 Congenital pes cavus, left foot; B35.1 Tinea unguium
CPT/HCPCS: 17110; 99203

== ENCOUNTER → 2024-11-24 13:44 | Outpatient (BNVA) | payer OTHER, SELFPAY | PROVIDERS: PCP Nurse Practitioner Family; Visit Provider Student in an Organized Health Care Education/Training Program | DX: B07.0 Plantar wart (principal); Q66.71 Congenital pes cavus, right foot; Q66.72 Congenital pes cavus, left foot; B35.1 Tinea unguium | CPT/HCPCS: 17110; J7354 ==

== ENCOUNTER 2024-11-25 15:31 | Outpatient (REF) | payer OTHER, SELFPAY ==
--- NOTE | ~2024-11-25 | XR_ITS ---
EXAMINATION: XR FOOT, LEFT CLINICAL INFORMATION: Q66.71 - Congenital pes cavus, right foot COMPARISON: None available. TECHNIQUE: AP, lateral, and oblique views of the left foot. FINDINGS: There is mild narrowing and marginal osteophytes associated with the first metatarsophalangeal joint. Small plantar calcaneal enthesophyte. No other abnormalities are noted. XR/XR foot LT min 3V IMPRESSION: Mild osteoarthritis involving first MTP joint. Electronically signed by: Mitchell Hickman MD 11/25/2024 04:40 PM EDT
--- OUTSIDE RECORDS SUMMARY | 2024-11-25 18:25 | XMS_ITS | Patient Health Record ---
Author Organization [facility] Address [address] [place] [address] Care Team Providers Care Patient Admitting Representative Name Role Phone Jacob Meyers M.D. Primary Care Provider Robert Mueller Jr Unavailable [phone] Reason For Referral No Information Medications Medication SIG (Take, Route, Fr equency, Duration) Notes Start Date End Date Status Ibuprofen 600 MG 1 tablet Orally as needed Active Multivitamins Active Problems Problem Type SNOMED Code ICD Code Onset Dates Problem Status W/U Status Risk Notes Problem 58655456 Rectal bleeding (569.3) Active confirmed Problem 894051330 B12 deficiency (E53.8) Active confirmed Plan Of Treatment Future Test Test Name Order Date COLONOSCOPY 08/06/2014 UPPER GI ENDOSCOPY 03/09/2015 Insurance Providers Payer Name Payer Address Payer Phone Subscriber Number Group Number Insured Name Patient Relationship to Insured Coverage Start Date Coverage End Date [facility] [address] [place] [phone] [id number] LINDA WARNER Self - patient is the insured Medical (General) History Medical History History ICD Code paroxysmal supraventricular tachycardia elevated cholesterol Surgical History Surgery Date(Month/Year) hernia repair
== END 2024-11-25 15:32 | disposition home or self-care (01) ==
LOC: HO.XRAY 15:31
PROVIDERS: PCP Nurse Practitioner Family; Visit Provider Student in an Organized Health Care Education/Training Program
DX: Q66.72 Congenital pes cavus, left foot (principal); M79.672 Pain in left foot
CPT/HCPCS: 73630

== ENCOUNTER → 2024-11-25 15:34 | Outpatient (BNV) | payer OTHER, SELFPAY | PROVIDERS: PCP Nurse Practitioner Family; Visit Provider Radiology Diagnostic Radiology | DX: Q66.71 Congenital pes cavus, right foot (principal) | CPT/HCPCS: 73630 ==

== ENCOUNTER 2024-12-07 15:53 | Outpatient (AMB) | payer OTHER, SELFPAY ==
--- NOTE | 2024-12-07 15:55 | MHC.OFFWIV ---
Intake Vital Signs 12/07/24 15:56 Height 5 ft 9 in BMI Reason not done Patient refused/unable BP 118/74 Blood Pressure Location Lt brachial Position Sitting Pulse 80 Pulse Source Pulse Oximeter Pulse Oximetry (%) 97 Oxygen Delivery Method Room Air Intake Visit Reasons: Left shoulder pain Intake Note: pt is here for ongoing left shoulder pain, requesting PT Patient Tobacco Use Status: Former Tobacco user Allergies carrot (Carrot) Allergy (Severe, Verified 12/07/24 15:57) ITCHING/SWELLING (IN RAW FORM) Do you need a note to return to daycare/school/sports/work: No HPI HPI Comments History of Present Illness Details 59 y/o Male patient who presents to the walk in clinic with c/o chronic left shoulder pain for 5 years now. He injured his shoulder while shoveling snow back in 2019. He has been taking Acetaminophen with mild relief. 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 Denies tingling or numbenss. [facility] Medical History Hematochezia Pernicious anemia Family history of diabetes mellitus Sleep apnea Low vitamin B12 level Surgical History Hx of umbilical hernia repair History of esophagogastroduodenoscopy (EGD) Hx of colonoscopy H/O inguinal hernia repair Family History Father No problems noted. Mother Hypertension Daughter Colon cancer Social History Housing: Apartment Alcohol intake: never Patient Tobacco Use Status: Former Tobacco user Years Smoked: 22yrs e-Cigarette/Vaping Use: Never Used service: No Current occupational status: employed Cognitive needs: No Hearing needs: No Vision needs: No Review of Systems Const All systems reviewed & are unremarkable except as noted in HPI and below Physical Exam Vital Signs: Last Vital Signs Pulse 80 12/07/24 15:56 BP 118/74 12/07/24 15:56 Pulse Ox 97 12/07/24 15:56 Oxygen Delivery Method Room Air 12/07/24 15:56 Const General: no acute distress Nutritional Appearance: obese and overweight Orientation/consciousness: patient oriented x3 Neuro General: patient oriented x3, gait normal and moves all extremities Extrem Right upper extremity: normal to inspection and full ROM Left upper extremity: normal to inspection and shoulder/upper arm Details: tenderness Location: of the A-C joint and of the mid-shaft humerus and normal ROM (Limited ROM due to pain. ); no swelling, no ecchymosis and no crepitus Psych Speech and movement: Normal speech and movement present Assessment & Plan Assessment & Plan (1) Left shoulder pain: Code(s): M25.512 - Pain in left shoulder Qualifiers: Chronicity: chronic Qualified Code(s): M25.512 - Pain in left shoulder; G89.29 - Other chronic pain Plan: NSAIDs and Acetaminophen for pain relief. Ordered PT Ice, Heat and rest joint. Orders: Orders PT Evaluation and Treatment Today G89.29 - Other chronic pain, M25.512 - Pain in left shoulder Coding Level of Care Code Est Pt Level 4 (36440) Diagnoses Chronic left shoulder pain M25.512; G89.29 Chronicity: chronic Time Spent (min) 20
[2024-12-07 15:56] VITALS: BP 118/74; PULSE 80; O2SAT 97
== END 2024-12-07 16:19 | disposition home or self-care (01) ==
PROVIDERS: PCP Nurse Practitioner Family; Visit Provider Nurse Practitioner Family
DX: M25.512 Pain in left shoulder (principal); G89.29 Other chronic pain

== ENCOUNTER 2024-12-08 09:30 | Outpatient (AMB) | payer OTHER, SELFPAY ==
[2024-12-08 09:45] VITALS: BMI 35.0
--- NOTE | 2024-12-08 09:45 | A.OFFVIS_ITS ---
Vital Signs 12/08/24 09:45 Height 5 ft 9 in Weight 237 lb BMI 35.0 Intake Visit Reasons: Follow Up Lt foot callus Intake Note: Wilder is a 59 year old male who presents today for a follow up on his bilateral cavus deformity and left foot callous. Patient reports his left foot pain has improved for two days, however the pain has returned and feels the same. Patient would like to discuss his x-ray results IMPRESSION: Mild osteoarthritis involving first MTP joint. Allergies carrot (Carrot) Allergy (Severe, Verified 12/07/24 15:57) ITCHING/SWELLING (IN RAW FORM) Medication List - Last Reconciled 12/08/24 by Luis Ro DPM acetaminophen ER (Arthritis Pain Reliever) 650 mg PO Q8H atorvastatin 20 mg PO BEDTIME B complex-vitamin C-folic acid 400 mcg ER 1 tab PO DAILY 90 days cholecalciferol (vitamin D3) 50 mcg PO QPM 90 days ciclopirox 0.77% 1 appl topical DAILY 4 weeks CPAP (CPAP Machine/Device) use every night diclofenac sodium 75 mg PO BID PRN dorzolamide-timolol 22.3-6.8 mg/mL 1 drp ophthalmic (eye) BID erythromycin 0.5 inches ophthalmic (eye) QID ferrous sulfate 325 mg PO DAILY hydrocortisone 1% 1 appl ND BEDTIME multivitamin 1 tab PO DAILY nebulizers daily use netarsudil-latanoprost 0.02-0.005 % ([facility]) drps ophthalmic (eye) omega-3 acid ethyl esters 1 cap PO BID psyllium husk 12 grams PO DAILY 90 days sildenafil 100 mg PO DAILY PRN HPI HPI Follow Up Lt foot callus: Details: The patient is a 59-year-old male returning for 2 week follow up evaluation for left foot pain. He states the pain initially improved for the first few days after his last appointment then returned. He notes the wart medication applied last time did not blister and healed well. He works on his feet all day at [employer] [employer] [facility] Medical History Hematochezia Pernicious anemia Family history of diabetes mellitus Sleep apnea Low vitamin B12 level Surgical History Hx of umbilical hernia repair History of esophagogastroduodenoscopy (EGD) Hx of colonoscopy H/O inguinal hernia repair Family History Father No problems noted. Mother Hypertension Daughter Colon cancer Social History Housing: Apartment Alcohol intake: never Patient Tobacco Use Status: Former Tobacco user Years Smoked: 22yrs e-Cigarette/Vaping Use: Never Used service: No Current occupational status: employed Cognitive needs: No Hearing needs: No Vision needs: No Review of Systems Const All systems reviewed & are unremarkable except as noted in HPI and below Physical Exam Vital Signs: BMI result Body Mass Index 35.0 Const General: no acute distress Nutritional Appearance: obese and overweight Orientation/consciousness: patient oriented x3 Neuro General: patient oriented x3, gait normal and moves all extremities Extrem Other: *Bilateral Lower Extremity Focused Exam Vascular: DP/PT 2/4, CFT<3s to digits, tg warm to cool, no pedal edema Derm: left foot submet5 lesion with deep core; (+) focal pinpoint bleeding; xerosis to plantar aspect of both feet with annular scaling. Neuro: Protective sensation grossly intact to bilateral lower extremities. MSK: High arch cavus foot type, semi rigid slightly reducible. Mild tenderness to direct pressure and radial squeeze to left foot sub-met-5 lesion, no pain on range of motion of the 5th toe. Psych Speech and movement: Normal speech and movement present Office Procedures AMB Podiatry Dressing 85454 Strapping of foot/toe (Fabricated/dispensed reverse dancer's pad using 1/4 felt for left plantar submet-5 region.) Procedure code (CPT) selection complete AMB Wart Destruction Podiatry 69412 - Wart Destruction (<15) (left submet 5) Procedure code (CPT) selection complete Office Meds salicylic acid 27.5 % topical film-forming liquid Performing Provider: Luis Ro DPM Performing Location[place] [facility] Administered by: Luis Ro DPM on 12/08/24 10:25 Dose Route Admin Location Dispensed Lot Number Expiration Date [facility] Food Service Technician 1 appl topical 1 mL [id number] JT RAM MACE Results Reviewed Results Reviewed: Podiatry X-ray Read: 11/25/2024 X-ray left foot 3 views (AP, MO, Lateral) reviewed which shows no fractures, dislocations, or gross abnormalities. Bone density is within normal limits. We have foot cavus deformity. 3 mm prominent plantar 5th metatarsal exostosis. No evidence of swelling, foreign body, or calcifications. I personally reviewed the imaging and my findings are listed above. Assessment & Plan Assessment & Plan (1) Verruca plantaris: Code(s): B07.0 - Plantar wart Category: Medical Plan: * Debrided left foot lesion using #15 blade. Applied salicylic acid to left submet5 lesion. dressed with band-aid. Post-debridement instructions given. * Rx Urea cream for surrounding hyperkeratotic build up (2) Cavus deformity of both feet: Code(s): Q66.71 - Congenital pes cavus, right foot; Q66.72 - Congenital pes cavus, left foot Category: Medical Plan: * Reviewed left foot x-rays with the patient. Mild plantar 5th metatarsal head hypertrophy/spur present. Recommend conservative treatment due to the minimal size of the lesion otherwise we will require surgical excision/5th metatarsal head osteotomy if there is no improvement with conservative treatment. * Fabricated/dispensed reverse dancer's pad. (3) Onychomycosis: Code(s): B35.1 - Tinea unguium Category: Medical Plan: * Continue ciclopirox. (4) Tinea pedis: Code(s): B35.3 - Tinea pedis Category: Medical Qualifiers: Laterality: bilateral Qualified Code(s): B35.3 - Tinea pedis Plan: * Rx Clotrimazole ointment Orders: Orders AMB Wart Destruction Podiatry Today B07.0 - Plantar wart AMB Podiatry Dressing Today Q66.71 - Congenital pes cavus, right foot, Q66.72 - Congenital pes cavus, left foot Medications: New clotrimazole 1% Apply to bottom of feet for athlete's foot. 1 appl topical BID 30 grams 3RF athlete's foot B35.3 - Tinea pedis urea 20% 1 appl topical BID 85 grams 3RF callus left foot L84 - Corns and callosities Coding Level of Care Code Est Pt Level 3 (03005) Diagnoses Verruca plantaris B07.0 Cavus deformity of both feet Q66.71; Q66.72 Onychomycosis B35.1 Tinea pedis of both feet B35.3 Laterality: bilateral CPT Codes Podiatry Dressing - CPT: 96269 Strapping of foot/toe ([id number]) Destruction of Wart - CPT: 49495 - Wart Destruction (<15) ([id number]) Time Spent (min) 30
--- OUTSIDE RECORDS SUMMARY | 2024-12-08 11:15 | XMS_ITS | Patient Health Record ---
Author Organization [facility] Address [address] [place] [address] Care Team Providers Care Piano Technician Name Role Phone AMANDA LUNA Primary Care Provider Robert Del Rio Jr Reason For Referral No Information Medications Medication SIG (Take, Route, Fr equency, Duration) Notes Start Date End Date Status Ibuprofen 600 MG 1 tablet Orally as needed Active Multivitamins Active Problems Problem Type SNOMED Code ICD Code Onset Dates Problem Status W/U Status Risk Notes Problem 72308275 Rectal bleeding (569.3) Active confirmed Problem 888162593 B12 deficiency (E53.8) Active confirmed Plan Of Treatment Future Test Test Name Order Date COLONOSCOPY 08/06/2014 UPPER GI ENDOSCOPY 03/09/2015 Next Appt Details Provider Name:Robert short Jr, 03/31/2025 10:20:00 AM, [address], [address], [place], [address], Insurance Providers Payer Name Payer Address Payer Phone Subscriber Number Group Number Insured Name Patient Relationship to Insured Coverage Start Date Coverage End Date [employer] [place] [address] [address] [place] [address] [id number] ALANA LINDA Self - patient is the insured 3 Medical (General) History Medical History History ICD Code paroxysmal supraventricular tachycardia elevated cholesterol Surgical History Surgery Date(Month/Year) hernia repair
== END 2024-12-08 10:15 | disposition home or self-care (01) ==
LOC: HO.HPODS 09:31
PROVIDERS: PCP Nurse Practitioner Family; Visit Provider Student in an Organized Health Care Education/Training Program
DX: B07.0 Plantar wart (principal); Q66.71 Congenital pes cavus, right foot; Q66.72 Congenital pes cavus, left foot; B35.1 Tinea unguium; B35.3 Tinea pedis
CPT/HCPCS: 17110; 29550; 99213

== ENCOUNTER → 2024-12-08 09:30 | Outpatient (BNVA) | payer OTHER, SELFPAY | PROVIDERS: PCP Nurse Practitioner Family; Visit Provider Student in an Organized Health Care Education/Training Program | DX: B07.0 Plantar wart (principal); B35.1 Tinea unguium; B35.3 Tinea pedis; Q66.71 Congenital pes cavus, right foot; Q66.72 Congenital pes cavus, left foot; L84 Corns and callosities | CPT/HCPCS: 17110; 29550 ==

== ENCOUNTER 2024-12-29 07:48 | Outpatient (AMB) | payer OTHER, SELFPAY ==
--- OUTSIDE RECORDS SUMMARY | 2024-12-29 07:51 | XMS_ITS | Patient Health Record ---
Author Organization [facility] Address [address] [place] [address] Care Team Providers Care Employment Representative Name Role Phone AMANDA LUNA Primary Care Provider Robert Del Rio Jr [phone] Reason For Referral No Information Medications Medication SIG (Take, Route, Fr equency, Duration) Notes Start Date End Date Status Ibuprofen 600 MG 1 tablet Orally as needed Active Multivitamins Active Problems Problem Type SNOMED Code ICD Code Onset Dates Problem Status W/U Status Risk Notes Problem Rectal bleeding (18378332) Rectal bleeding (569.3) Active confirmed Problem Vitamin B12 deficiency (non anemic) (86124355) B12 deficiency (E53.8) Active confirmed Plan Of Treatment Future Test Test Name Order Date COLONOSCOPY 08/06/2014 UPPER GI ENDOSCOPY 03/09/2015 Next Appt Details Provider Name:Robert short Jr, 03/31/2025 10:20:00 AM, [address], [address], [place], [address], Insurance Providers Payer Name Payer Address Payer Phone Subscriber Number Group Number Insured Name Patient Relationship to Insured Coverage Start Date Coverage End Date [employer] [place] [address] [address] [place] [address] [id number] LINDA WARNER Self - patient is the insured 3 Medical (General) History Medical History History ICD Code paroxysmal supraventricular tachycardia elevated cholesterol Surgical History Surgery Date(Month/Year) hernia repair
[2024-12-29 07:59] VITALS: BMI 34.6
--- NOTE | 2024-12-29 07:59 | A.OFFVIS_ITS ---
Vital Signs 12/29/24 07:59 Height 5 ft 9 in Weight 234 lb BMI 34.6 Intake Visit Reasons: OV- left plantar wart, right 5th metatarsal spur Intake Note: Wilder is a 59 year old male who presents today for a follow up left plantar wart, right 5th metatarsal bone spur and tinea pedis. Last his last visit a wart destruction was completed and urea cream was prescribed. For his bone spur a reverse dancers pad was dispensed and lastly Clotrimazole ointment was prescribed. Patient reports that he has seen significant improvement in his feet however he is still in search for the dancers pad and plans on searching in [employer]. He denies pain at this time. Allergies carrot (Carrot) Allergy (Severe, Verified 12/29/24 08:15) ITCHING/SWELLING (IN RAW FORM) HPI HPI OV- left plantar wart, right 5th metatarsal spur: Details: The patient is a 59-year-old male returning for 3 week follow up evaluation for left foot pain. He states the pain has mostly resolved. He is using the Urea cream prescribed last visit as well as the off-loading pad in his shoe. He did not yet purchase a new off-loading pad. He works on his feet [place] day [place] [facility] [employer] [place] [facility] Medical History Hematochezia Pernicious anemia Family history of diabetes mellitus Sleep apnea Low vitamin B12 level Surgical History Hx of umbilical hernia repair History of esophagogastroduodenoscopy (EGD) Hx of colonoscopy H/O inguinal hernia repair Family History Father No problems noted. Mother Hypertension Daughter Colon cancer Social History Housing: Apartment Alcohol intake: never Patient Tobacco Use Status: Former Tobacco user Years Smoked: 22yrs e-Cigarette/Vaping Use: Never Used service: No Current occupational status: employed Cognitive needs: No Hearing needs: No Vision needs: No Physical Exam Vital Signs: BMI result Body Mass Index 34.6 Const General: no acute distress Nutritional Appearance: obese and overweight Orientation/consciousness: patient oriented x3 Neuro General: patient oriented x3, gait normal and moves all extremities Extrem Other: *Bilateral Lower Extremity Focused Exam Vascular: DP/PT 2/4, CFT<3s to digits, tg warm to cool, no pedal edema Derm: left foot submet5 lesion with hyperkeratotic lesion, no deep core or pinpoint bleeding; xerosis to plantar aspect of both feet with annular scaling. Neuro: Protective sensation grossly intact to bilateral lower extremities. MSK: High arch cavus foot type, semi rigid slightly reducible. Mild tenderness to direct pressure and radial squeeze to left foot sub-met-5 lesion, no pain on range of motion of the 5th toe. Psych Speech and movement: Normal speech and movement present Office Procedures AMB Debridement/Avulsion Podia Details: Procedure: Callus debridement Location: Left foot plantar 5th metatarsal head Anesthesia: N/A Description: The affected area was cleansed with an antiseptic solution. Using a sterile #15 blade, the hyperkeratotic tissue was radially debrided from the foot. All callused tissue was removed down to normal skin without causing bleeding or discomfort. The area was inspected for underlying ulceration or infection. Patient tolerated the procedure well. No complications noted. Tolerance: Patient tolerated procedure well, no immediate complications. [id number]-Ryiizncqnwo of Callus (1) Procedure code (CPT) selection complete Assessment & Plan Assessment & Plan (1) Onychomycosis: Code(s): B35.1 - Tinea unguium Category: Medical Plan: * Nail biopsy right 3rd toe performed * Will discuss results next visit (2) Verruca plantaris: Code(s): B07.0 - Plantar wart Category: Medical Plan: * Debrided left foot lesion using #15 blade. Verruca lesion appears resolved s/p salicylic acid. * Continue Urea cream daily * Dispensed a new offloading reverse dancer's pad * Follow up in 1 month (3) Cavus deformity of both feet: Code(s): Q66.71 - Congenital pes cavus, right foot; Q66.72 - Congenital pes cavus, left foot Category: Medical Plan: * Reviewed left foot x-rays with the patient. Mild plantar 5th metatarsal head hypertrophy/spur present. Recommend conservative treatment due to the minimal size of the lesion otherwise we will require surgical excision/5th metatarsal head osteotomy if there is no improvement with conservative treatment. (4) Tinea pedis: Code(s): B35.3 - Tinea pedis Category: Medical Qualifiers: Laterality: bilateral Qualified Code(s): B35.3 - Tinea pedis Plan: * Continue Clotrimazole ointment Orders: Orders AMB Debridement/Avulsion Podiatry Today B07.0 - Plantar wart, B35.1 - Tinea unguium, L84 - Corns and callosities Coding Level of Care Code Est Pt Level 3 (82369) Diagnoses Onychomycosis B35.1 Verruca plantaris B07.0 Cavus deformity of both feet Q66.71; Q66.72 Tinea pedis of both feet B35.3 Laterality: bilateral CPT Codes Skin Debridement - CPT: 08047-Rnyupcfmome of Callus (1) ([id number]) Time Spent (min) 30
== END 2024-12-29 08:31 | disposition home or self-care (01) ==
LOC: HO.HPODS 07:49
PROVIDERS: PCP Nurse Practitioner Family; Visit Provider Student in an Organized Health Care Education/Training Program
DX: B35.1 Tinea unguium (principal); B07.0 Plantar wart; Q66.71 Congenital pes cavus, right foot; Q66.72 Congenital pes cavus, left foot; B35.3 Tinea pedis
CPT/HCPCS: 11055; 99213

== ENCOUNTER 2024-12-29 07:48 | Outpatient (REF) | payer OTHER, SELFPAY | END 2024-12-29 07:49 | disposition home or self-care (01) | LOC: HO.LNP 07:48 | PROVIDERS: PCP Nurse Practitioner Family; Visit Provider Student in an Organized Health Care Education/Training Program | DX: Q66.71 Congenital pes cavus, right foot (principal); Q66.72 Congenital pes cavus, left foot; B35.1 Tinea unguium; B35.3 Tinea pedis; B07.0 Plantar wart | CPT/HCPCS: 11055; 87101; 87220; 88304; 88312 ==

== ENCOUNTER 2025-02-02 09:09 | Outpatient (AMB) | payer OTHER, SELFPAY ==
[2025-02-02 09:28] VITALS: BMI 34.6
--- NOTE | 2025-02-02 09:28 | A.OFFVIS_ITS ---
Vital Signs 02/02/25 09:28 Height 5 ft 9 in Weight 234 lb BMI 34.6 Intake Visit Reasons: OV- left plantar wart, right 5th metatarsal spur Intake Note: Wilder is a 59 year old male who presents today for a follow up on his bilateral cavus deformity. At his last visit a nail biopsy of his right 3rd toe was performed and specimens sent out for pathology and microbiology, He also had his left plantar wart was derided. Patient was advised to continue utilizing the Urea cream daily and he was dispensed a new offloading reverse dancer's pad. He reports he no longer experiencing pain at this time and his main concern for todays visit would be to discuss his fungal nails Allergies carrot (Carrot) Allergy (Severe, Verified 02/02/25 09:34) ITCHING/SWELLING (IN RAW FORM) HPI HPI OV- left plantar wart, right 5th metatarsal spur: Details: The patient is a 59-year-old male returning for 1 month follow up evaluation for left foot pain. He states the pain has mostly resolved. He is using the Urea cream prescribed last visit as well as the off-loading pad in his shoe. He has not been applying the antifungal cream to the bottom of his feet daily. He works on his feet all day at [employer] [facility] [facility] [place]. FORMERLY [facility] Medical History Hematochezia Pernicious anemia Family history of diabetes mellitus Sleep apnea Low vitamin B12 level Surgical History Hx of umbilical hernia repair History of esophagogastroduodenoscopy (EGD) Hx of colonoscopy H/O inguinal hernia repair Family History Father No problems noted. Mother Hypertension Daughter Colon cancer Social History Housing: Apartment Alcohol intake: never Patient Tobacco Use Status: Former Tobacco user Years Smoked: 22yrs e-Cigarette/Vaping Use: Never Used service: No Current occupational status: employed Cognitive needs: No Hearing needs: No Vision needs: No Review of Systems Const All systems reviewed & are unremarkable except as noted in HPI and below Physical Exam Vital Signs: BMI result Body Mass Index 34.6 Const General: no acute distress Nutritional Appearance: obese and overweight Orientation/consciousness: patient oriented x3 Neuro General: patient oriented x3, gait normal and moves all extremities Extrem Other: *Bilateral Lower Extremity Focused Exam Vascular: DP/PT 2/4, CFT<3s to digits, tg warm to cool, no pedal edema Derm: left foot submet5 lesion with hyperkeratotic lesion, no deep core or pinpoint bleeding; xerosis to plantar aspect of both feet with annular scaling. Left 4th interspace maceration. Neuro: Protective sensation grossly intact to bilateral lower extremities. MSK: High arch cavus foot type, semi rigid slightly reducible. No tenderness to direct pressure and radial squeeze to left foot sub-met-5 lesion, no pain on range of motion of the 5th toe. Results Reviewed Results Reviewed: Podiatry X-ray Read: 11/25/2024 X-ray left foot 3 views (AP, MO, Lateral) reviewed which shows no fractures, dislocations, or gross abnormalities. Bone density is within normal limits. We have foot cavus deformity. 3 mm prominent plantar 5th metatarsal exostosis. No evidence of swelling, foreign body, or calcifications. I personally reviewed the imaging and my findings are listed above. Assessment & Plan Assessment & Plan (1) Onychomycosis: Code(s): B35.1 - Tinea unguium Category: Medical Plan: * Nail biopsy right 3rd toe performed * Will discuss results next visit (2) Verruca plantaris: Code(s): B07.0 - Plantar wart Category: Medical Plan: * Debrided left foot lesion using #15 blade. Verruca lesion appears resolved s/p salicylic acid. * Continue Urea cream daily * Continue offloading reverse dancer's pad * Follow up in 1 month (3) Cavus deformity of both feet: Code(s): Q66.71 - Congenital pes cavus, right foot; Q66.72 - Congenital pes cavus, left foot Category: Medical Plan: * Reviewed left foot x-rays with the patient. Mild plantar 5th metatarsal head hypertrophy/spur present. Recommend conservative treatment due to the minimal size of the lesion otherwise we will require surgical excision/5th metatarsal head osteotomy if there is no improvement with conservative treatment. (4) Tinea pedis: Code(s): B35.3 - Tinea pedis Category: Medical Qualifiers: Laterality: bilateral Qualified Code(s): B35.3 - Tinea pedis Plan: * Refilled Clotrimazole ointment Coding Level of Care Code Est Pt Level 3 (16255) Diagnoses Onychomycosis B35.1 Verruca plantaris B07.0 Cavus deformity of both feet Q66.71; Q66.72 Tinea pedis of both feet B35.3 Laterality: bilateral Time Spent (min) 35
== END 2025-02-02 09:50 | disposition home or self-care (01) ==
LOC: HO.HPODS 09:10
PROVIDERS: PCP Nurse Practitioner Family; Visit Provider Student in an Organized Health Care Education/Training Program
DX: B35.1 Tinea unguium (principal); B07.0 Plantar wart; Q66.71 Congenital pes cavus, right foot; Q66.72 Congenital pes cavus, left foot; B35.3 Tinea pedis
CPT/HCPCS: 99213

== ENCOUNTER 2025-03-04 10:12 | Outpatient (AMB) | payer OTHER, SELFPAY ==
[2025-03-04 10:23] VITALS: BMI 34.6
--- NOTE | 2025-03-04 10:23 | MHC.OFFVIS ---
Vital Signs 03/04/25 10:23 Height 5 ft 9 in Weight 234 lb BMI 34.6 Intake Visit Reasons: OV- left plantar wart, right 5th metatarsal spur Intake Note: Wilder is a 60 year old male who presents to the office today for a follow up left plantar wart, right 5th metatarsal spur. At last visit left foot lesion was debrided and was instructed to continue Urea cream daily and continue offloading reverse dancer's pad. Pt states he is doing well however he complaints of mild pain on the lateral aspect of the foot. Allergies carrot (Carrot) Allergy (Severe, Verified 03/04/25 10:25) ITCHING/SWELLING (IN RAW FORM) HPI HPI OV- left plantar wart, right 5th metatarsal spur: Details: The patient is a 59-year-old male returning for 1 month follow up evaluation for left foot pain. He states the pain has slowly been returning. He is using the Urea cream prescribed last visit. He has been applying the antifungal cream to the bottom of his feet daily, has not seen improvement. He works on his [place] [facility] [place] [place] [facility] Medical History Hematochezia Pernicious anemia Family history of diabetes mellitus Sleep apnea Low vitamin B12 level Surgical History Hx of umbilical hernia repair History of esophagogastroduodenoscopy (EGD) Hx of colonoscopy H/O inguinal hernia repair Family History Father No problems noted. Mother Hypertension Daughter Colon cancer Social History Housing: Apartment Alcohol intake: never Patient Tobacco Use Status: Former Tobacco user Years Smoked: 22yrs e-Cigarette/Vaping Use: Never Used service: No Current occupational status: employed Cognitive needs: No Hearing needs: No Vision needs: No Review of Systems Const All systems reviewed & are unremarkable except as noted in HPI and below Physical Exam Vital Signs: BMI result Body Mass Index 34.6 Const General: no acute distress Nutritional Appearance: obese and overweight Orientation/consciousness: patient oriented x3 Neuro General: patient oriented x3, gait normal and moves all extremities Extrem Other: *Bilateral Lower Extremity Focused Exam Vascular: DP/PT 2/4, CFT<3s to digits, tg warm to cool, no pedal edema Derm: left foot submet5 lesion with mild IPK lesion, deep core without pinpoint bleeding; xerosis to plantar aspect of both feet with annular scaling mildly improved Left 4th interspace maceration, no improvement. Thickened elongated dystrophic discolored toenails x 5 right foot with subungual debris. Neuro: Protective sensation grossly intact to bilateral lower extremities. MSK: High arch cavus foot type, semi rigid slightly reducible. No tenderness to direct pressure and radial squeeze to left foot sub-met-5 lesion, no pain on range of motion of the 5th toe. Office Procedures AMB Debridement /Avulsion Details: Procedure: Callus debridement Location: 1 left foot Anesthesia: N/A Description: The affected area was cleansed with an antiseptic solution. Using a sterile #15 blade, the hyperkeratotic tissue was radially debrided from the foot. All callused tissue was removed down to normal skin without causing bleeding or discomfort. The area was inspected for underlying ulceration or infection. Patient tolerated the procedure well. No complications noted. Tolerance: Patient tolerated procedure well, no immediate complications. [id number] of Callus (1) Procedure code (CPT) selection complete Results Reviewed Results Reviewed: 12/30/2024 Diagnosis Nail, right third toe, excision: Onychomycosis 12/29/2024 Fungus Cult Hair/Skin/Nail Final 01/27/25-1447 Fungus present on culture. Does not resemble a dermatophyte Assessment & Plan Assessment & Plan (1) Onychomycosis: Code(s): B35.1 - Tinea unguium Category: Medical Plan: Reviewed nail biopsy right foot Rx ciclopirox (2) Verruca plantaris: Code(s): B07.0 - Plantar wart Category: Medical Plan: Debrided left foot lesion using #15 blade. Verruca lesion appears resolved s/p salicylic acid administered previously. Continue Urea cream daily Continue offloading reverse dancer's pad Follow up in 2 months (3) Cavus deformity of both feet: Code(s): Q66.71 - Congenital pes cavus, right foot; Q66.72 - Congenital pes cavus, left foot Category: Medical Plan: Educated the patient on their foot type. Explained that their high arch foot type (Cavus feet) can lead to altered weight distribution, resulting in increased pressure on the heel and forefoot. Patients may experience symptoms such as pain, callus formation, tendinitis, instability, lateral ankle sprains, and, in some cases, development of digital deformities (e.g., claw toes or hammertoes). Discussed the importance of shoe type with heel and forefoot padding and support.. (4) Tinea pedis: Code(s): B35.3 - Tinea pedis Category: Medical Qualifiers: Laterality: bilateral Qualified Code(s): B35.3 - Tinea pedis Plan: Continue Clotrimazole ointment Recommended applying Betadine ointment to the left 4th interspace Medications: New ciclopirox 8% Apply to fungal toenails daily. Remove build-up at the end of the week. 1 appl topical BEDTIME 6.6 mL 3RF 4 months Coding Level of Care Code Est Pt Level 3 (46430) Diagnoses Onychomycosis B35.1 Verruca plantaris B07.0 Cavus deformity of both feet Q66.71; Q66.72 Tinea pedis of both feet B35.3 Laterality: bilateral Time Spent (min) 25
--- OUTSIDE RECORDS SUMMARY | 2025-03-04 12:35 | XMS_ITS | Patient Health Record ---
Author Organization [facility] Address [address] [place] [address] [address] [place] [address] Care Team Providers Care Income Tax Auditor Name Role Phone AMANDA LUNA Primary Care Provider Robert Del Rio Jr Reason For Referral No Information Medications Medication SIG (Take, Route, Fr equency, Duration) Notes Start Date End Date Status Ibuprofen 600 MG Tablet 1 tablet Orally as needed Active Multivitamins Active Social History Social History Additional Details Category Social Info Options Details Miscellaneous: Marital status: Occupation: unemployed Problems Problem Type SNOMED Code ICD Code Onset Dates Problem Status W/U Status Risk Notes Problem Rectal bleeding (99591409) Rectal bleeding (569.3) Active confirmed Problem Vitamin B12 deficiency (non anemic) (99672142) B12 deficiency (E53.8) Active confirmed Plan Of Treatment Future Test Test Name Order Date COLONOSCOPY 08/06/2014 UPPER GI ENDOSCOPY 03/09/2015 Next Appt Details Provider Name:Robert short Jr, 03/31/2025 10:20:00 AM, [address] [place] [address], [address], [place], [address], Insurance Providers Payer Name Payer Address Payer Phone Subscriber Number Group Number Insured Name Patient Relationship to Insured Coverage Start Date Coverage End Date [employer] [place] [address] [address] [place] [address] [id number] WARNERLINDA VIRK Self - patient is the insured 3 Medical (General) History Medical History History ICD Code paroxysmal supraventricular tachycardia elevated cholesterol Surgical History Surgery Date(Month/Year) hernia repair
== END 2025-03-04 11:10 | disposition home or self-care (01) ==
LOC: HO.HPODS 10:13
PROVIDERS: PCP Nurse Practitioner Family; Visit Provider Student in an Organized Health Care Education/Training Program
DX: B35.1 Tinea unguium (principal); B07.0 Plantar wart; Q66.71 Congenital pes cavus, right foot; Q66.72 Congenital pes cavus, left foot; B35.3 Tinea pedis
CPT/HCPCS: 11055; 99213

== ENCOUNTER → 2025-03-04 10:12 | Outpatient (BNVA) | payer OTHER, SELFPAY | PROVIDERS: PCP Nurse Practitioner Family; Visit Provider Student in an Organized Health Care Education/Training Program | DX: B35.1 Tinea unguium (principal); B07.0 Plantar wart; Q66.71 Congenital pes cavus, right foot; Q66.72 Congenital pes cavus, left foot; M25.774 Osteophyte, right foot; M79.672 Pain in left foot; D51.0 Vitamin B12 deficiency anemia due to intrinsic factor deficiency | CPT/HCPCS: 11055 ==